=== PATIENT | male | born 1960 | race Caucasian/White ===

== ENCOUNTER 2017-05-12 14:40 | Emergency (ER) | payer MEDICARE, OTHER ==
[2017-05-12] MEDS ORDERED: methylPREDNISolone SOD SUCC 125 MG/2 ML VIAL IM ONE (15:16)
[2017-05-12] MEDS ORDERED: PENICILLIN G BENZATHINE 1,200,000 UNITS INJ IM ONE (15:16)
--- NOTE | 2017-05-12 15:20 | ED Physician Documentation ---
Upper Respiratory Symptoms - HISTORIAN Historian: patient, parent - HPI Stated Complaint: Cough/Congestion Chief Complaint: Cough/ Upper Respiratory Additional Information: x 2 days, started with sore throat 4 days ago. Dry non prod cough. hx of pneumonia. no other complaints Onset: days ago Duration: constant Context: denies: recent foreign travel, multiple patients Severity: mild Associated Symptoms: sore throat. denies: fever Worsened by Deep Breath: No Further Comments: no - ROS CONST/EYES: denies: weakness, eye redness CVS/RESP: denies: chest pain, shortness of breath LYMPH: denies: leg swelling GI/: none NEURO/PSYCH: denies: fainting, dizziness MS/SKIN: denies: joint pain, muscle aches - PAST HX Lung Disease: none PE Risk Factors: none Surgeries/Procedures: none Immunizations: UTD Allergies/Adverse Reactions: Allergies Allergy/AdvReac Type Severity Reaction Status Date / Time No Known Drug Allergies Allergy Verified 05/12/17 15:02 - SOCIAL HX Smoking History: non-smoker Alcohol Use: none Drug Use: none - FAMILY HX Family History: none - VITAL SIGNS Vital Signs: Vital Signs Temp Pulse Resp BP Pulse Ox 97.9 F 100 H 26 H 161/96 97 05/12/17 14:40 05/12/17 14:40 05/12/17 14:40 05/12/17 14:40 05/12/17 14:40 - REVIEWED ASSESSMENTS Nursing Assessment Reviewed: Yes Vitals Reviewed: Yes ED Results Lab/Radiology - Orders Orders: ED Orders Category Date Time Status Penicillin G Benzathine [Bicillin l-A] Med 05/12/17 15:16 Once 1,200,000 units IM NOW ONE methylPREDNISolone SOD SUCC [Solu-MEDROL] Med 05/12/17 15:16 Once 125 mg IM NOW ONE Upper Respiratory Symptoms - EXAM General Appearance: no acute distress, alert EENT: eyes nml inspection, nml ENT inspection, pharyngeal erythema (mild). No: pain over sinuses Neck: normal inspection, supple. No: lymphadenopathy Respiratory: no resp. distress, breath sounds nml, no pain on inspiration, speaks full sentences. No: wheezes, rales, rhonchi Abdomen: non-tender CVS: reg rate & rhythm Skin: color nml, no rash, warm,dry Extremities: normal range of motion, no edema Neuro/Psych: oriented x3, mood/affect nml Discharge Clincal Impression: URI with cough and congestion, Sore throat Referrals: Nino Mitchell MD [Primary Care Provider] - 2 Days Condition: Good Disposition: 01 HOME, SELF-CARE Decision to Admit: NO Date of Decison to Admit: 05/12/17 Decision Time: 15:20
[2017-05-12 15:52] VITALS: BP 150/68
== END 2017-05-12 15:50 | disposition home or self-care (01) ==
LOC: ED 14:40
DX: R05 Cough (principal); R68.89 Other general symptoms and signs; J02.9 Acute pharyngitis, unspecified
CPT/HCPCS: 96372; 99283; J2930

== ENCOUNTER 2017-05-31 13:31 | Outpatient (CLI) | payer MEDICARE, OTHER ==
--- NOTE | 2017-05-31 14:58 | Diagnostic Imaging Report ---
CM BARNES [facility] [address] [facility] [address] [address] Report Submission Date: May 31, 2017 1:59:29 PM CDT Patient Study Name: KAMILLE BALDERRAMA Date: May 31, 2017 1:33:39 PM CDT Modality Type: CR Gender: M Description: CHEST : 60 Institution: [facility] Physician: CM BARNES Examination: Portable chest History: Cough Findings: Single view of the chest demonstrates poor inspiratory effort. Elevation of the right hemidiaphragm. Right inferior hilar parenchymal hazyness. Remaining lung douglas are clear. No blunting of the posterior margins. Osseous structures are appropriate for age. Impression: Right infrahilar hazy infiltrate. No effusion. Electronically signed on May 31, 2017 1:59:29 PM CDT by: Alberto CEJA
== END 2017-05-31 13:32 ==
LOC: RAD 13:31
PROVIDERS: ATTEND Family Medicine
DX: J40 Bronchitis, not specified as acute or chronic (principal)
CPT/HCPCS: 71020

== ENCOUNTER 2018-08-10 14:59 | Outpatient (CLI) | payer MEDICARE, OTHER ==
[2018-08-10 15:54] LABS: eGFR (Non-African) > 60
--- NOTE | 2018-08-10 18:42 | Diagnostic Imaging Report ---
CM BARNES [facility] [address] [facility] [address] [address] Report Submission Date: Aug 10, 2018 3:56:00 PM CDT Patient Study Name: KAMILLE BALDERRAMA Date: Aug 10, 2018 3:31:04 PM CDT Modality Type: DX Gender: M Description: CHEST : 60 Institution: [facility] Physician: CM BARNES 2 views of the chest History: PATIENT STATES COUGH X 2 WEEKS WITH SOA ON EXERTION Comparison: May 31, 2017 Mild cardiomegaly. There is no significant change in the right infrahilar hazy opacity. No pleural effusion or pneumothorax. Hypoventilation causes bronchovascular crowding No acute osseous pathology Impression: 1. Persistent right infrahilar hazy opacity needs further evaluation with elective CT chest to exclude pathology. No pleural effusion or pneumothorax. Right basilar atelectasis. Hypoventilation Electronically signed on Aug 10, 2018 3:56:00 PM CDT by: Carmen CEJA
[2018-08-10 23:11] LABS: BASO % 0.7 % (0.0-1.5); LYMPH ABS # 2.46 thou/uL (0.60-4.00); MCH. 31.5 pg (28.0-34.0); MCV 91.1 fL (80.0-100.0); MONOCYTE % 8.7 % (0.0-11.0); PLATELET COUNT 214 thou/uL (130-400)
[2018-08-11 00:31] LABS: TROPONIN T <0.010 ng/mL (<0.010)
== END 2018-08-10 15:00 ==
LOC: LAB 14:59
PROVIDERS: ATTEND Family Medicine
DX: R06.09 Other forms of dyspnea (principal); E11.9 Type 2 diabetes mellitus without complications; I10 Essential (primary) hypertension
CPT/HCPCS: 36415; 71046; 80053; 83036; 84484; 85025

== ENCOUNTER 2018-08-12 13:40 | Outpatient (CLI) | payer MEDICARE, OTHER ==
--- NOTE | 2018-08-12 20:22 | Diagnostic Imaging Report ---
CM BARNES [facility] [address] [facility] [address] Report Submission Date: Aug 12, 2018 6:17:00 PM CDT Patient Study Name: KAMILLE BALDERRAMA Date: Aug 12, 2018 2:17:39 PM CDT Modality Type: CT\SR Gender: M Description: CT CHEST W/ CONTRAST : 60 Institution: [facility] Physician: CM BARNES CT of the chest with IV contrast Clinical history: Possible right lung mass, history of cough and dyspnea Radiation dose DLP [id number] Normal mediastinum. No pulmonary embolus or aortic dissection. Coronary artery calcification is noted. No visible mass lesion or adenopathy. No esophageal dilatation. Tracheobronchial tree appear to be normal. No focal hepatic or splenic pathology. Normal adrenal glands. Normal bony thorax. Old healed fracture the upper sternum. Impression: No visible mass lesions or adenopathy No acute infiltrate or pleural effusion Coronary artery calcifications Old healed fracture the upper sternum Electronically signed on Aug 12, 2018 6:17:00 PM CDT by: Speedy CEJA
== END 2018-08-12 13:42 ==
LOC: RAD 13:40
PROVIDERS: ATTEND Family Medicine
DX: R91.8 Other nonspecific abnormal finding of lung field (principal)
CPT/HCPCS: 71260; Q9967; Q9966